=== PATIENT | female | born 1980 | race Caucasian/White ===

== ENCOUNTER 2018-03-03 14:55 | Inpatient (IN) | payer OTHER ==
[2018-03-03 16:31] VITALS: BMI 25.8
--- NOTE | 2018-03-03 19:36 | HP ---
Admission [facility] Chief Complaint: alcohol / crack /cocaine rehab Allergies/Adverse Reactions: Allergies Allergy/AdvReac Type Severity Reaction Status Date / Time ciprofloxacin [From Cipro] Allergy Severe Verified 03/03/18 17:07 morphine Allergy Severe Verified 03/03/18 17:07 History of Present Illness: 37 yo female with hx of crack/ cocaine, nicotine and alcohol dependence is here seeking rehab. Reports hx of past heroin use, clean since 2010. Last detox 2014 at [facility]. PMHX: seizures , IDDM (type 1), neuropathy, HTN, anemia, anxiety, borderline disorder and depression. Denies suicidal / homicide. Last suicide attempt one month admitted to [facility]. Exam Limitations: No Limitations - Ebola screening Have you traveled outside of the country in the last 21 days: No (N) Have you had contact with anyone from an Ebola affected area: No Have you been sick,other than usual withdrawal symptoms: No Do you have a fever: No - Review of Systems Constitutional: Changes in sleep EENT: reports: Other (uses glasess , (R) retina detachment.) Respiratory: reports: No Symptoms reported Cardiac: reports: No Symptoms Reported GI: reports: No Symptoms Reported : reports: Burning (currently treated for yeast infection), Other (white cottage cheese discharge x 2 days) Musculoskeletal: reports: No Symptoms Reported Integumentary: reports: No Symptoms Reported Neuro: reports: See HPI Endocrine: reports: Increased Thirst Hematology: reports: See HPI, Anemia Psychiatric: reports: Orientated x3, Depressed Other Systems: Reviewed and Negative Patient History - Patient Medical History Hx Anemia: Yes (hx of iron transfusion last infusion three months ago ) Hx Asthma: No Hx Chronic Obstructive Pulmonary Disease (COPD): No Hx Cancer: No Hx Cardiac Disorders: No Hx Congestive Heart Failure: No Hx Hypertension: Yes Hx Hypercholesterolemia: No Hx Pacemaker: No HX Cerebrovascular Accident: No Hx Seizures: Yes Hx Dementia: No Hx Diabetes: Yes (Insulin Dependent since age 7 yo ) Hx Gastrointestinal Disorders: No Hx Liver Disease: No Hx Genitourinary Disorders: Yes (frequent yeast infection ) Hx Sexually Transmitted Disorders: No Hx Renal Disease (ESRD): No Hx Thyroid Disease: No Hx Human Immunodeficiency Virus (HIV): No (last tested 6 months ago ) Hx Hepatitis C: Yes (reports no treatment needed at this time ) Hx Depression: Yes Hx Suicide Attempt: Yes (one month ago ) Hx Bipolar Disorder: No Hx Schizophrenia: No - Patient Surgical History Past Surgical History: Yes Hx Neurologic Surgery: No Hx Cataract Extraction: No Hx Cardiac Surgery: No Hx Lung Surgery: No Hx Breast Surgery: No Hx Breast Biopsy: No Hx Abdominal Surgery: No Hx Appendectomy: No Hx Cholecystectomy: No Hx Genitourinary Surgery: No Hx Section: Yes (3x ) Hx Orthopedic Surgery: No Hx Hysterectomy: No Other Surgical History: retinal detachment repair 2018, 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 Admission?: No PPD to be Administered?: Yes - Reproductive History Patient is a Female of Child Bearing Age (11 -55 yrs old): Yes Last Menstrual Period: 02/09/18 Patient : No - Smoking Cessation Smoking history: Current every day smoker Have you smoked in the past 12 months: Yes Aproximately how many cigarettes per day: 8 Hx Chewing Tobacco Use: No Initiated information on smoking cessation: Yes 'Breaking Loose' booklet given: 03/03/18 - Substance & Tx. History Hx Alcohol Use: Yes Hx Substance Use: Yes Substance Use Type: Alcohol, Cocaine Hx Substance Use Treatment: Yes (Last detox 2014 at [facility]) - Substances Abused Alcohol Route: Oral Frequency: 3-6 times per week Amount used: 3 x 24 oz Age of first use: 6 Date of Last Use: 03/01/18 Crack Route: Smoking Frequency: 3-6 times per week Amount used: $20 -100 Age of first use: 14 Date of Last Use: 03/02/18 Family Disease History - Family Disease History Family Disease History: Heart Disease: Father (), Other: Father, Mother ( , mental illness and alcoholism ) Admission Physical Exam S - Vital Signs Vital Signs: Vital Signs - 24 hr 03/03/18 16:28 Temperature 98.9 F Pulse Rate 96 H Respiratory 20 Rate Blood Pressure 107/73 - Physical General Appearance: Yes: Appropriately Dressed, Thin, Anxious HEENTM: Yes: EOMI, Hearing grossly Normal, Normal ENT Inspection, Normocephalic , Normal Voice, DARWIN, Pharynx Normal, Tm's normal, Other (poor dentition) Respiratory: Yes: Chest Non-Tender, Lungs Clear, Normal Breath Sounds, No Respiratory Distress, No Accessory Muscle Use Neck: Yes: No masses,lesions,Nodules, Trachea in good position Breast: Yes: Breast Exam Deferred Cardiology: Yes: Regular Rhythm, Regular Rate Abdominal: Yes: Normal Bowel Sounds, Non Tender, Flat, Soft Genitourinary: Yes: Within Normal Limits Back: Yes: Normal Inspection Musculoskeletal: Yes: full range of Motion, Gait Steady, Pelvis Stable Extremities: Yes: Normal Capillary Refill, Normal Inspection, Normal Range of Motion, Non-Tender Neurological: Yes: environmental solutions engineer II-XII NML intact, Fully Oriented, Alert, Motor Strength 5/5, Normal Response Integumentary: Yes: Within Normal Limits, Normal Color, Dry, Warm Lymphatic: Yes: Within Normal Limits - Diagnostic (1) Vaginal yeast infection Current Visit: Yes Status: Acute (2) Alcohol dependence Current Visit: Yes Status: Acute Qualifiers: Substance use status: uncomplicated Qualified Code(s): F10.20 - Alcohol dependence, uncomplicated (3) Cocaine dependence Current Visit: Yes Status: Acute Qualifiers: Substance use status: uncomplicated Qualified Code(s): F14.20 - Cocaine dependence, uncomplicated (4) Insulin dependent type 1 diabetes mellitus Current Visit: Yes Status: Chronic Comment: On Lantus (15 Units in AM, 20 Units HS), Humalog (on sliding scale TID) (5) Hypertension Current Visit: Yes Status: Chronic Qualifiers: Hypertension type: essential hypertension Qualified Code(s): I10 - Essential (primary) hypertension (6) Neuropathy Current Visit: Yes Status: Chronic Comment: on gabapentin TID (7) Seizure Current Visit: Yes Status: Chronic (8) Depressed mood Current Visit: Yes Status: Acute (9) Anemia Current Visit: Yes Status: Chronic Qualifiers: Anemia type: unspecified type Qualified Code(s): D64.9 - Anemia, unspecified [facility] Breath Alcohol Content Breath Alcohol Content: 0 Urine Pregancy Test - Result Urine Test Results: Negative- NO Line Present Urine Drug Screen - Results Drug Screen Negative: No Urine Drug Screen Results: ZENAIDA-Cocaine Inpatient Rehab Admission - Initial Determination Are CD services needed?: Yes Free of communicable disease: Yes Not in need of hospitalization: Yes - Rehab Admission Criteria Previous failed treatment: Yes Poor recovery environment: Yes Comorbidities: Yes Lacks judgement: Yes Patient is meeting Inpatient Rehab admission criteria:: Yes
[2018-03-03] MEDS ORDERED: MAG HYDROX/AL HYDROX/SIMETH 30 ML UNIT-DOSE CUP PO PRN (19:50)
[2018-03-03] MEDS ORDERED: P-EPHED 60MG/TRIPROLIDI 2.5MG TABLET PO PRN (19:50)
[2018-03-03] MEDS ORDERED: NICOTINE POLACRILEX 2 MG GUM BUC PRN (19:50)
[2018-03-03] MEDS ORDERED: MAGNESIUM CITRATE 300 ML BOTTLE PO PRN (19:50)
[2018-03-03] MEDS ORDERED: MENTHOL/PHENOL 1 EACH UD MM PRN (19:50)
[2018-03-03] MEDS ORDERED: LOPERAMIDE HCL 2 MG CAPSULE PO PRN (19:50)
[2018-03-03] MEDS ORDERED: guaiFENesin/D-METHORPHAN HB 10 ML UNIT-DOSE CUPS PO PRN (19:50)
[2018-03-03] MEDS ORDERED: TUBERCULIN PPD 5 TU/0.1ML VIAL ID ONE ×2 (22:23→23:32)
[2018-03-03] MEDS: THIAMINE HCL 100 MG TABLET (FP) PO SCH (22:43)
[2018-03-03] MEDS: GABAPENTIN 400 MG CAPSULE (FP) PO SCH (22:43)
[2018-03-03] MEDS: levETIRAcetam 500 MG TABLET (FP) PO SCH (22:46)
[2018-03-03] MEDS: INSULIN (LEVEMIR) 100 UNITS/ML UNITS SQ SCH (22:50)
--- NOTE | 2018-03-03 23:07 | PN ---
S Progress Note Note: As per nursing reports patient tranfsered to [facility], has been on; AMBIEN 10MG PO PRN QHS FOR IUNSOMNIA Remeron 15mg po qgs REC: Remeron 15mg po qhs Belsomra 10mg po qhs prn for insomnia
[2018-03-04] MEDS: GABAPENTIN 400 MG CAPSULE (FP) PO SCH ×3 (06:51→21:19)
[2018-03-04] MEDS ORDERED: INSULIN (NOVOLOG) ASPART 100 UNITS/ML 10ML VIAL ONE ×2 (06:57→11:26)
[2018-03-04] MEDS ORDERED: PATIENT'S OWN MEDICATION (NON-FORMULARY) (Insulin Lispro [Humalog] 100 UNIT) SQ SCH (07:00)
[2018-03-04] MEDS: INSULIN (LEVEMIR) 100 UNITS/ML UNITS SQ SCH ×2 (08:05→21:23)
[2018-03-04] MEDS: INSULIN SLIDING SCALE (NOVOLOG) 1 VIAL SQ SCH ×3 (08:11→17:08)
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
[2018-03-04 09:57] LABS: ALBUMIN 3.2 g/dl (3.4-5.0); ANION GAP 8 (8-16); BLOOD UREA NITROGEN 23 mg/dL (7-18); CALCIUM 8.8 mg/dL (8.5-10.1); CHLORIDE 104 mmol/L (98-107); CO2 26 mmol/L (21-32); GLUCOSE,RANDOM 383 mg/dL (74-106); POTASSIUM 4.8 mmol/L (3.5-5.1); SODIUM 138 mmol/L (136-145)
[2018-03-04 09:58] LABS: HEMATOCRIT 37.6 % (32.4-45.2); HEMOGLOBIN 12.7 GM/dL (10.7-15.3); MCH 30.6 pg (25.7-33.7); MCHC 33.9 g/dl (32.0-36.0); MEAN CELL VOLUME 90.2 fl (80-96); PLATELET COUNT 256 K/MM3 (134-434); RBC 4.17 M/mm3 (3.60-5.2); RDW 13.1 % (11.6-15.6); WHITE BLOOD COUNT 6.8 K/mm3 (4.0-10.0)
[2018-03-04 10:01] LABS: ALK PHOS 113 U/L (45-117); BILIRUBIN,TOTAL 0.2 mg/dL (0.2-1.0); CREATININE 1.4 mg/dL (0.55-1.02); SGOT/AST 12 U/L (15-37); SGPT/ALT 16 U/L (12-78); TOT PROT 6.2 g/dl (6.4-8.2)
[2018-03-04] MEDS: levETIRAcetam 500 MG TABLET (FP) PO SCH ×2 (10:31→21:23)
[2018-03-04] MEDS: PRENATAL VITAMINS W/ FOLIC ACID TABLET (FP) PO SCH (10:31)
[2018-03-04] MEDS: NICOTINE 14 MG/24 HOURS TOPICAL PATCH TD SCH (10:31)
[2018-03-04] MEDS: amLODIPine BESYLATE 10 MG TABLET (FP) PO SCH (10:31)
[2018-03-04] MEDS: DULoxetine HCL 20 MG CAPSULE.DR (FP) PO SCH (11:20)
[2018-03-04] MEDS: THIAMINE HCL 100 MG TABLET (FP) PO SCH (21:20)
[2018-03-04] MEDS: MIRTAZAPINE 15 MG TABLET (FP) PO SCH (21:21)
[2018-03-05] MEDS: GABAPENTIN 400 MG CAPSULE (FP) PO SCH ×3 (06:51→21:15)
[2018-03-05] MEDS: INSULIN SLIDING SCALE (NOVOLOG) 1 VIAL SQ SCH ×3 (06:52→16:56)
[2018-03-05] MEDS ORDERED: PT OWN MED DRAWER 7, Y5N ONE (07:00)
--- NOTE | 2018-03-05 08:20 | PN ---
[facility] Progress Note Note: CLIENT SEEN FOR ASYMPTOMATIC BGM OF 40MG/DL PO SUPPLEMENTATION GIVEN REPEAT BGM 208MG/DL Laboratory Results - last 24 hr 03/03/18 03/04/18 03/04/18 22:49 08:40 08:40 WBC 6.8 RBC 4.17 Hgb 12.7 Hct 37.6 MCV 90.2 MCH 30.6 MCHC 33.9 RDW 13.1 Plt Count 256 MPV 8.0 Sodium 138 Potassium 4.8 Chloride 104 Carbon Dioxide 26 Anion Gap 8 BUN 23 H Creatinine 1.4 H Creat Clearance w eGFR 41.86 POC Glucometer 502 Random Glucose 383 H* Calcium 8.8 Total Bilirubin 0.2 AST 12 L ALT 16 Alkaline Phosphatase 113 Total Protein 6.2 L Albumin 3.2 L RPR Titer 03/04/18 03/04/18 03/04/18 08:40 11:23 17:08 WBC RBC Hgb Hct MCV MCH MCHC RDW Plt Count MPV Sodium Potassium Chloride Carbon Dioxide Anion Gap BUN Creatinine Creat Clearance w eGFR POC Glucometer 291 374 Random Glucose Calcium Total Bilirubin AST ALT Alkaline Phosphatase Total Protein Albumin RPR Titer Nonreactive 03/04/18 03/05/18 21:18 05:54 WBC RBC Hgb Hct MCV MCH MCHC RDW Plt Count MPV Sodium Potassium Chloride Carbon Dioxide Anion Gap BUN Creatinine Creat Clearance w eGFR POC Glucometer 93 40 Random Glucose Calcium Total Bilirubin AST ALT Alkaline Phosphatase Total Protein Albumin RPR Titer REPEAT BGM 208MG/DL D/W CLIENT TO HAVE MORNING BREAKFAST MAY GIVE A.M. LEVEMIR AFTER BREAKFAST CONT TO TO MONITOR CLINICALLY
[2018-03-05] MEDS: INSULIN (LEVEMIR) 100 UNITS/ML UNITS SQ SCH ×2 (08:30→21:19)
[2018-03-05] MEDS: NICOTINE 14 MG/24 HOURS TOPICAL PATCH TD SCH (10:22)
[2018-03-05] MEDS: PRENATAL VITAMINS W/ FOLIC ACID TABLET (FP) PO SCH (10:23)
[2018-03-05] MEDS: amLODIPine BESYLATE 10 MG TABLET (FP) PO SCH (10:23)
[2018-03-05] MEDS: DULoxetine HCL 20 MG CAPSULE.DR (FP) PO SCH (10:23)
[2018-03-05] MEDS: levETIRAcetam 500 MG TABLET (FP) PO SCH ×2 (10:23→21:16)
[2018-03-05] MEDS: hydrOXYzine PAMOATE 50 MG CAPSULE (FP) PO PRN (10:25)
[2018-03-05] MEDS ORDERED: INSULIN (NOVOLOG) ASPART 100 UNITS/ML 10ML VIAL ONE ×2 (11:46→16:49)
[2018-03-05] MEDS: ACETAMINOPHEN 325 MG TABLET (FP) PO PRN (16:50)
[2018-03-05] MEDS: THIAMINE HCL 100 MG TABLET (FP) PO SCH (21:15)
[2018-03-05] MEDS: MIRTAZAPINE 15 MG TABLET (FP) PO SCH (21:15)
[2018-03-05] MEDS: MELATONIN 5 MG TABLETS PO PRN (21:17)
[2018-03-05] MEDS: SUVOREXANT 10 MG TABLET PO PRN (21:19)
[2018-03-06] MEDS: GABAPENTIN 400 MG CAPSULE (FP) PO SCH ×3 (06:42→21:35)
[2018-03-06] MEDS: INSULIN SLIDING SCALE (NOVOLOG) 1 VIAL SQ SCH ×3 (06:43→16:58)
[2018-03-06] MEDS: INSULIN (LEVEMIR) 100 UNITS/ML UNITS SQ SCH ×2 (07:52→21:38)
[2018-03-06] MEDS ORDERED: levETIRAcetam 250 MG TABLET (FP) PO ONE ×2 (08:45→20:29)
[2018-03-06] MEDS ORDERED: SUMAtriptan SUCCINATE 50 MG TABLET PO ONE ×2 (10:20→17:45)
[2018-03-06] MEDS ORDERED: ONDANSETRON *ODT* 4 MG TABLET SL PRN (10:21)
--- NOTE | 2018-03-06 10:24 | PN ---
[facility] Progress Note Note: Vital Signs Temperature 97.8 F 03/06/18 06:54 Pulse Rate 65 03/06/18 10:07 Respiratory Rate 18 03/06/18 06:54 Blood Pressure 98/62 03/06/18 10:07 O2 Sat by Pulse Oximetry (%) c/o of nausea and vomiting and bilateral temporal headache which started this morning. Patient reports at home takes imitrex INJ for migraine headaches. Home meds hx reviewed, no rx seen for imitrex. No vision changes reported. Patient AOx3 no distress + headache neg neuro full ROM - migraine headache Plan: One time order imitrex 25 mg zofran PRN fluids as tolerate rest continue to monitor
[2018-03-06] MEDS: PRENATAL VITAMINS W/ FOLIC ACID TABLET (FP) PO SCH (11:00)
[2018-03-06] MEDS: DULoxetine HCL 20 MG CAPSULE.DR (FP) PO SCH (11:00)
[2018-03-06] MEDS: amLODIPine BESYLATE 10 MG TABLET (FP) PO SCH (11:00)
[2018-03-06] MEDS: NICOTINE 14 MG/24 HOURS TOPICAL PATCH TD SCH (11:00)
[2018-03-06] MEDS: levETIRAcetam 500 MG TABLET (FP) PO SCH ×2 (11:00→21:38)
[2018-03-06] MEDS: IBUPROFEN 400 MG TABLET (FP) PO PRN (12:13)
[2018-03-06] MEDS ORDERED: SUMAtriptan SUCCINATE 25 MG TABLET PO ONE ×2 (17:18)
--- NOTE | 2018-03-06 17:26 | PN ---
S Progress Note Note: Vital Signs Temperature 97.8 F 03/06/18 06:54 Pulse Rate 65 03/06/18 10:07 Respiratory Rate 18 03/06/18 06:54 Blood Pressure 98/62 03/06/18 10:07 O2 Sat by Pulse Oximetry (%) continues to c/o of migraine headache unrelieved 25mg imitrex one time dose 50mg imitrex ordered increase fluids continue to monitor
[2018-03-06] MEDS ORDERED: PT OWN MED DRAWER 7, Y5N ONE (19:59)
[2018-03-06] MEDS: MIRTAZAPINE 15 MG TABLET (FP) PO SCH (21:34)
[2018-03-06] MEDS: THIAMINE HCL 100 MG TABLET (FP) PO SCH (21:34)
[2018-03-06] MEDS: hydrOXYzine PAMOATE 50 MG CAPSULE (FP) PO PRN (21:36)
[2018-03-06] MEDS: SUVOREXANT 10 MG TABLET PO PRN (21:37)
[2018-03-07] MEDS: GABAPENTIN 400 MG CAPSULE (FP) PO SCH ×3 (06:28→21:47)
[2018-03-07] MEDS: INSULIN SLIDING SCALE (NOVOLOG) 1 VIAL SQ SCH ×3 (06:29→17:05)
[2018-03-07] MEDS: INSULIN (LEVEMIR) 100 UNITS/ML UNITS SQ SCH ×2 (07:32→21:52)
[2018-03-07] MEDS ORDERED: PT OWN MED DRAWER 7, Y5N ONE (08:33)
[2018-03-07] MEDS: NICOTINE 14 MG/24 HOURS TOPICAL PATCH TD SCH (10:18)
[2018-03-07] MEDS: DULoxetine HCL 20 MG CAPSULE.DR (FP) PO SCH (10:19)
[2018-03-07] MEDS: amLODIPine BESYLATE 10 MG TABLET (FP) PO SCH (10:19)
[2018-03-07] MEDS: PRENATAL VITAMINS W/ FOLIC ACID TABLET (FP) PO SCH (10:19)
--- NOTE | 2018-03-07 11:10 | EKG ---
Test Reason : Blood Pressure : / mmHG Vent. Rate : 091 BPM Atrial Rate : 091 BPM P-R Int : 124 ms QRS Dur : 090 ms QT Int : 374 ms P-R-T Axes : 071 062 061 degrees QTc Int : 460 ms NORMAL SINUS RHYTHM NORMAL ECG WHEN COMPARED WITH ECG OF 03-MAR-2018 20:55, NO SIGNIFICANT CHANGE WAS FOUND Confirmed by DENNIS MUSE MD ([id number]) on 03/07/2018 11:10:03 AM Referred By: Confirmed By:DENNIS MUSE MD
--- NOTE | 2018-03-07 11:11 | EKG ---
Test Reason : Blood Pressure : / mmHG Vent. Rate : 094 BPM Atrial Rate : 094 BPM P-R Int : 116 ms QRS Dur : 086 ms QT Int : 384 ms P-R-T Axes : 068 039 053 degrees QTc Int : 480 ms NORMAL SINUS RHYTHM PROLONGED QT ABNORMAL ECG NO PREVIOUS ECGS AVAILABLE Confirmed by DENNIS MUSE MD ([id number]) on 03/07/2018 11:11:22 AM Referred By: Confirmed By:DENNIS MUSE MD
[2018-03-07] MEDS: IBUPROFEN 400 MG TABLET (FP) PO PRN (15:58)
[2018-03-07] MEDS ORDERED: levETIRAcetam 500 MG TABLET (FP) PO ONE (19:43)
[2018-03-07] MEDS ORDERED: levETIRAcetam 250 MG TABLET (FP) PO ONE (19:44)
[2018-03-07] MEDS: MIRTAZAPINE 15 MG TABLET (FP) PO SCH (21:47)
[2018-03-07] MEDS: MELATONIN 5 MG TABLETS PO PRN (21:48)
[2018-03-07] MEDS: THIAMINE HCL 100 MG TABLET (FP) PO SCH (21:49)
[2018-03-07] MEDS: hydrOXYzine PAMOATE 50 MG CAPSULE (FP) PO PRN (21:50)
[2018-03-07] MEDS ORDERED: SUVOREXANT 10 MG TABLET PO SCH (23:15)
[2018-03-08] MEDS: GABAPENTIN 400 MG CAPSULE (FP) PO SCH ×3 (06:41→21:52)
[2018-03-08] MEDS: INSULIN SLIDING SCALE (NOVOLOG) 1 VIAL SQ SCH ×3 (06:43→17:08)
[2018-03-08] MEDS: INSULIN (LEVEMIR) 100 UNITS/ML UNITS SQ SCH ×2 (08:00→21:54)
[2018-03-08] MEDS ORDERED: levETIRAcetam 500 MG TABLET (FP) PO ONE ×2 (08:46→19:48)
[2018-03-08] MEDS ORDERED: levETIRAcetam 250 MG TABLET (FP) PO ONE ×2 (08:46→19:48)
[2018-03-08] MEDS: DULoxetine HCL 20 MG CAPSULE.DR (FP) PO SCH (09:19)
[2018-03-08] MEDS: NICOTINE 14 MG/24 HOURS TOPICAL PATCH TD SCH (09:20)
[2018-03-08] MEDS: amLODIPine BESYLATE 10 MG TABLET (FP) PO SCH (09:20)
[2018-03-08] MEDS: PRENATAL VITAMINS W/ FOLIC ACID TABLET (FP) PO SCH (09:20)
[2018-03-08] MEDS: IBUPROFEN 400 MG TABLET (FP) PO PRN (09:21)
[2018-03-08] MEDS: ACETAMINOPHEN 325 MG TABLET (FP) PO PRN (11:59)
[2018-03-08 15:46] LABS: URINE APPEARANCE CLEAR; URINE BILIRUBIN NEGATIVE (<2.0 mg/dL); URINE COLOR LTYELLOW; URINE GLUCOSE (UA) 3+ (NEGATIVE); URINE KETONE NEGATIVE (NEGATIVE); URINE LEUK ESTERASE NEGATIVE (NEGATIVE); URINE NITRITE NEGATIVE (NEGATIVE); URINE UROBILINOGEN NEGATIVE mg/dL (0.2-1.0)
[2018-03-08 15:52] LABS: URINE PROTEIN 1+ (NEGATIVE)
[2018-03-08 16:02] LABS: EPI CELLS RARE /HPF (FEW); URINE BACTERIA RARE /hpf (NONE SEEN); URINE MUCUS RARE
[2018-03-08] MEDS: MIRTAZAPINE 15 MG TABLET (FP) PO SCH (21:52)
[2018-03-08] MEDS: THIAMINE HCL 100 MG TABLET (FP) PO SCH (21:52)
[2018-03-08] MEDS ORDERED: SUVOREXANT 10 MG TABLET PO PRN (22:00)
[2018-03-09] MEDS: GABAPENTIN 400 MG CAPSULE (FP) PO SCH ×3 (06:37→21:45)
[2018-03-09] MEDS: INSULIN SLIDING SCALE (NOVOLOG) 1 VIAL SQ SCH ×3 (06:37→16:56)
[2018-03-09] MEDS: INSULIN (LEVEMIR) 100 UNITS/ML UNITS SQ SCH ×2 (07:54→21:46)
[2018-03-09] MEDS ORDERED: levETIRAcetam 500 MG TABLET (FP) PO ONE ×2 (08:27→19:05)
[2018-03-09] MEDS ORDERED: levETIRAcetam 250 MG TABLET (FP) PO ONE ×2 (08:27→19:05)
[2018-03-09] MEDS: IBUPROFEN 400 MG TABLET (FP) PO PRN (09:03)
[2018-03-09] MEDS: amLODIPine BESYLATE 10 MG TABLET (FP) PO SCH (09:07)
[2018-03-09] MEDS: PRENATAL VITAMINS W/ FOLIC ACID TABLET (FP) PO SCH (09:07)
[2018-03-09] MEDS: DULoxetine HCL 20 MG CAPSULE.DR (FP) PO SCH (09:08)
[2018-03-09] MEDS: NICOTINE 14 MG/24 HOURS TOPICAL PATCH TD SCH (09:08)
[2018-03-09] MEDS: ACETAMINOPHEN 325 MG TABLET (FP) PO PRN (12:28)
[2018-03-09] MEDS: hydrOXYzine PAMOATE 50 MG CAPSULE (FP) PO PRN (15:09)
[2018-03-09] MEDS: SUVOREXANT 10 MG TABLET PO SCH (21:45)
[2018-03-09] MEDS: THIAMINE HCL 100 MG TABLET (FP) PO SCH (21:45)
[2018-03-09] MEDS: MIRTAZAPINE 30 MG TABLET (FP) PO SCH (21:47)
[2018-03-10] MEDS: GABAPENTIN 400 MG CAPSULE (FP) PO SCH ×3 (06:43→21:16)
[2018-03-10] MEDS: INSULIN (LEVEMIR) 100 UNITS/ML UNITS SQ SCH ×2 (06:49→21:20)
[2018-03-10] MEDS: INSULIN SLIDING SCALE (NOVOLOG) 1 VIAL SQ SCH ×3 (06:50→16:59)
[2018-03-10] MEDS ORDERED: INSULIN (NOVOLOG) ASPART 100 UNITS/ML 10ML VIAL ONE ×2 (07:03→11:26)
[2018-03-10] MEDS ORDERED: levETIRAcetam 250 MG TABLET (FP) PO ONE ×2 (08:12→19:33)
[2018-03-10] MEDS ORDERED: levETIRAcetam 500 MG TABLET (FP) PO ONE ×2 (08:12→19:32)
[2018-03-10] MEDS: DULoxetine HCL 20 MG CAPSULE.DR (FP) PO SCH (09:37)
[2018-03-10] MEDS: PRENATAL VITAMINS W/ FOLIC ACID TABLET (FP) PO SCH (09:37)
[2018-03-10] MEDS: NICOTINE 14 MG/24 HOURS TOPICAL PATCH TD SCH (09:38)
[2018-03-10] MEDS: amLODIPine BESYLATE 10 MG TABLET (FP) PO SCH (09:38)
--- NOTE | 2018-03-10 18:27 | PN ---
[facility] Progress Note Note: Patient c/o feeling that blood sugar is high. Patient BS repeated by the nurse and was 545 at 1800. Alert and oriented. Vital Signs Period Temp Pulse Resp BP Sys/Mejia Pulse Ox Last 24 Hr 98.1 F 71-80 16-18 104-142/69-88 Given 8 units sliding scale insulin. Repeat BGM prior to evening Levemir was 349 at 2100. Encourage 1 pitcher water every shift and to decrease/stop juices.
[2018-03-10] MEDS ORDERED: INSULIN (NOVOLOG) ASPART 100 UNITS/ML 10ML VIAL SQ ONE (19:15)
[2018-03-10] MEDS: SUVOREXANT 10 MG TABLET PO SCH (21:16)
[2018-03-10] MEDS: THIAMINE HCL 100 MG TABLET (FP) PO SCH (21:16)
[2018-03-10] MEDS: MIRTAZAPINE 30 MG TABLET (FP) PO SCH (21:16)
[2018-03-11] MEDS: GABAPENTIN 400 MG CAPSULE (FP) PO SCH ×3 (06:45→21:28)
[2018-03-11] MEDS: INSULIN SLIDING SCALE (NOVOLOG) 1 VIAL SQ SCH ×3 (06:46→17:00)
[2018-03-11] MEDS: INSULIN (LEVEMIR) 100 UNITS/ML UNITS SQ SCH ×2 (07:51→21:27)
[2018-03-11] MEDS ORDERED: PT OWN MED DRAWER 7, Y5N ONE ×2 (07:53→19:33)
[2018-03-11] MEDS ORDERED: levETIRAcetam 250 MG TABLET (FP) PO ONE ×2 (08:19→19:31)
[2018-03-11] MEDS ORDERED: levETIRAcetam 500 MG TABLET (FP) PO ONE ×2 (08:19→19:31)
[2018-03-11] MEDS: DULoxetine HCL 20 MG CAPSULE.DR (FP) PO SCH (10:03)
[2018-03-11] MEDS: amLODIPine BESYLATE 10 MG TABLET (FP) PO SCH (10:03)
[2018-03-11] MEDS: PRENATAL VITAMINS W/ FOLIC ACID TABLET (FP) PO SCH (10:03)
[2018-03-11] MEDS: IBUPROFEN 400 MG TABLET (FP) PO PRN (10:04)
[2018-03-11] MEDS: NICOTINE 14 MG/24 HOURS TOPICAL PATCH TD SCH (10:04)
[2018-03-11] MEDS ORDERED: INSULIN (NOVOLOG) ASPART 100 UNITS/ML 10ML VIAL ONE (12:25)
--- NOTE | 2018-03-11 13:30 | PN ---
S Progress Note Note: c/o of migraine head ache and white thick vaginal discharge Vital Signs Temperature 98.0 F 03/11/18 06:50 Pulse Rate 64 03/11/18 10:00 Respiratory Rate 18 03/11/18 06:50 Blood Pressure 116/74 03/11/18 10:00 O2 Sat by Pulse Oximetry (%) Laboratory Last Values WBC 6.8 K/mm3 (4.0-10.0) 03/04/18 08:40 RBC 4.17 M/mm3 (3.60-5.2) 03/04/18 08:40 Hgb 12.7 GM/dL (10.7-15.3) 03/04/18 08:40 Hct 37.6 % (32.4-45.2) 03/04/18 08:40 MCV 90.2 fl (80-96) 03/04/18 08:40 MCH 30.6 pg (25.7-33.7) 03/04/18 08:40 MCHC 33.9 g/dl (32.0-36.0) 03/04/18 08:40 RDW 13.1 % (11.6-15.6) 03/04/18 08:40 Plt Count 256 K/MM3 (134-434) 03/04/18 08:40 MPV 8.0 fl (7.5-11.1) 03/04/18 08:40 Sodium 138 mmol/L (136-145) 03/04/18 08:40 Potassium 4.8 mmol/L (3.5-5.1) 03/04/18 08:40 Chloride 104 mmol/L (98-107) 03/04/18 08:40 Carbon Dioxide 26 mmol/L (21-32) 03/04/18 08:40 Anion Gap 8 (8-16) 03/04/18 08:40 BUN 23 mg/dL (7-18) H 03/04/18 08:40 Creatinine 1.4 mg/dL (0.55-1.02) H 03/04/18 08:40 Creat Clearance w eGFR 41.86 (>60) 03/04/18 08:40 POC Glucometer 239 UNITS (80-120) 03/11/18 16:58 Random Glucose 383 mg/dL (74-106) H* 03/04/18 08:40 Calcium 8.8 mg/dL (8.5-10.1) 03/04/18 08:40 Total Bilirubin 0.2 mg/dL (0.2-1.0) 03/04/18 08:40 AST 12 U/L (15-37) L 03/04/18 08:40 ALT 16 U/L (12-78) 03/04/18 08:40 Alkaline Phosphatase 113 U/L (45-117) 03/04/18 08:40 Total Protein 6.2 g/dl (6.4-8.2) L 03/04/18 08:40 Albumin 3.2 g/dl (3.4-5.0) L 03/04/18 08:40 Urine Color Ltyellow 03/08/18 09:50 Urine Appearance Clear 03/08/18 09:50 Urine pH 6.0 (5.0-8.0) 03/08/18 09:50 Ur Specific [place] 1.015 (1.001-1.035) 03/08/18 09:50 Urine Protein 1+ (NEGATIVE) H 03/08/18 09:50 Urine Glucose (UA) 3+ (NEGATIVE) H 03/08/18 09:50 Urine Ketones Negative (NEGATIVE) 03/08/18 09:50 Urine Blood Negative (NEGATIVE) 03/08/18 09:50 Urine Nitrite Negative (NEGATIVE) 03/08/18 09:50 Urine Bilirubin Negative (<2.0 mg/dL) 03/08/18 09:50 Urine Urobilinogen Negative mg/dL (0.2-1.0) 03/08/18 09:50 Ur Leukocyte Esterase Negative (NEGATIVE) 03/08/18 09:50 Urine WBC (Auto) 1 /hpf (3-5) 03/08/18 09:50 Urine RBC (Auto) <1 /hpf (0-3) 03/08/18 09:50 Ur Epithelial Cells Rare /HPF (FEW) 03/08/18 09:50 Urine Bacteria Rare /hpf (NONE SEEN) 03/08/18 09:50 Urine Mucus Rare 03/08/18 09:50 RPR Titer Nonreactive (NONREACTIVE) 03/04/18 08:40 Patient refuse scheduled keppra levels one dose imitrex 50 mg one dose diflucan + clotrimetazole x 3 days increase fluids continue to monitor
[2018-03-11] MEDS ORDERED: SUMAtriptan SUCCINATE 50 MG TABLET PO ONE (14:00)
[2018-03-11] MEDS ORDERED: FLUCONAZOLE 50 MG TABLET PO ONE (14:00)
[2018-03-11] MEDS: SUVOREXANT 10 MG TABLET PO SCH (21:29)
[2018-03-11] MEDS: THIAMINE HCL 100 MG TABLET (FP) PO SCH (21:29)
[2018-03-11] MEDS: MIRTAZAPINE 30 MG TABLET (FP) PO SCH (21:29)
[2018-03-11] MEDS: CLOTRIMAZOLE 1% VAGINAL CREAM WITH APPLICATOR 45 GM TUBE VG SCH (21:30)
[2018-03-12] MEDS: GABAPENTIN 400 MG CAPSULE (FP) PO SCH ×3 (06:28→21:55)
[2018-03-12] MEDS: INSULIN SLIDING SCALE (NOVOLOG) 1 VIAL SQ SCH ×3 (06:29→16:15)
[2018-03-12] MEDS: INSULIN (LEVEMIR) 100 UNITS/ML UNITS SQ SCH ×2 (07:53→21:59)
[2018-03-12] MEDS ORDERED: INSULIN (LEVEMIR) 100 UNITS/ML UNITS SQ ONE (08:10)
[2018-03-12] MEDS ORDERED: levETIRAcetam 500 MG TABLET (FP) PO ONE ×2 (08:46→19:20)
[2018-03-12] MEDS ORDERED: levETIRAcetam 250 MG TABLET (FP) PO ONE ×2 (08:46→19:20)
[2018-03-12] MEDS: DULoxetine HCL 20 MG CAPSULE.DR (FP) PO SCH (09:49)
[2018-03-12] MEDS: NICOTINE 14 MG/24 HOURS TOPICAL PATCH TD SCH (09:50)
[2018-03-12] MEDS: PRENATAL VITAMINS W/ FOLIC ACID TABLET (FP) PO SCH (09:50)
[2018-03-12] MEDS: amLODIPine BESYLATE 10 MG TABLET (FP) PO SCH (09:50)
[2018-03-12] MEDS: MIRTAZAPINE 30 MG TABLET (FP) PO SCH (21:55)
[2018-03-12] MEDS: THIAMINE HCL 100 MG TABLET (FP) PO SCH (21:55)
[2018-03-12] MEDS: SUVOREXANT 10 MG TABLET PO SCH (21:55)
[2018-03-12] MEDS: CLOTRIMAZOLE 1% VAGINAL CREAM WITH APPLICATOR 45 GM TUBE VG SCH (21:56)
[2018-03-13] MEDS: GABAPENTIN 400 MG CAPSULE (FP) PO SCH ×3 (06:59→21:28)
[2018-03-13] MEDS: INSULIN SLIDING SCALE (NOVOLOG) 1 VIAL SQ SCH ×3 (07:30→17:10)
[2018-03-13] MEDS: INSULIN (LEVEMIR) 100 UNITS/ML UNITS SQ SCH ×2 (07:57→21:28)
[2018-03-13] MEDS ORDERED: INSULIN (LEVEMIR) 100 UNITS/ML UNITS SQ ONE (08:03)
[2018-03-13] MEDS ORDERED: levETIRAcetam 500 MG TABLET (FP) PO ONE ×2 (08:50→19:28)
[2018-03-13] MEDS ORDERED: levETIRAcetam 250 MG TABLET (FP) PO ONE ×2 (08:50→19:28)
[2018-03-13] MEDS: NICOTINE 14 MG/24 HOURS TOPICAL PATCH TD SCH (10:11)
[2018-03-13] MEDS: DULoxetine HCL 20 MG CAPSULE.DR (FP) PO SCH (10:11)
[2018-03-13] MEDS: amLODIPine BESYLATE 10 MG TABLET (FP) PO SCH (10:11)
[2018-03-13] MEDS: PRENATAL VITAMINS W/ FOLIC ACID TABLET (FP) PO SCH (10:11)
[2018-03-13] MEDS ORDERED: INSULIN (NOVOLOG) ASPART 100 UNITS/ML 10ML VIAL ONE (16:58)
[2018-03-13] MEDS: MIRTAZAPINE 30 MG TABLET (FP) PO SCH (21:24)
[2018-03-13] MEDS: SUVOREXANT 10 MG TABLET PO SCH (21:24)
[2018-03-13] MEDS: THIAMINE HCL 100 MG TABLET (FP) PO SCH (21:24)
[2018-03-13] MEDS: CLOTRIMAZOLE 1% VAGINAL CREAM WITH APPLICATOR 45 GM TUBE VG SCH (21:26)
[2018-03-13] MEDS ORDERED: PT OWN MED DRAWER 7, Y5N ONE (21:27)
[2018-03-14] MEDS: INSULIN (LEVEMIR) 100 UNITS/ML UNITS SQ SCH ×2 (06:50→21:25)
[2018-03-14] MEDS: INSULIN SLIDING SCALE (NOVOLOG) 1 VIAL SQ SCH ×3 (06:51→16:48)
[2018-03-14] MEDS: GABAPENTIN 400 MG CAPSULE (FP) PO SCH ×3 (07:27→21:22)
[2018-03-14] MEDS ORDERED: levETIRAcetam 250 MG TABLET (FP) PO ONE ×2 (08:34→19:57)
[2018-03-14] MEDS ORDERED: levETIRAcetam 500 MG TABLET (FP) PO ONE ×2 (08:34→19:57)
[2018-03-14] MEDS: amLODIPine BESYLATE 10 MG TABLET (FP) PO SCH (10:08)
[2018-03-14] MEDS: PRENATAL VITAMINS W/ FOLIC ACID TABLET (FP) PO SCH (10:09)
[2018-03-14] MEDS: NICOTINE 14 MG/24 HOURS TOPICAL PATCH TD SCH (10:09)
[2018-03-14] MEDS: DULoxetine HCL 20 MG CAPSULE.DR (FP) PO SCH (10:09)
[2018-03-14] MEDS ORDERED: INSULIN (NOVOLOG) ASPART 100 UNITS/ML 10ML VIAL ONE (11:24)
[2018-03-14] MEDS ORDERED: AMITRIPTYLINE HCL 25 MG TABLET (FP) PO ONE (17:15)
[2018-03-14] MEDS: THIAMINE HCL 100 MG TABLET (FP) PO SCH (21:22)
[2018-03-14] MEDS: MIRTAZAPINE 30 MG TABLET (FP) PO SCH (21:22)
[2018-03-14] MEDS: SUVOREXANT 10 MG TABLET PO SCH (21:22)
[2018-03-14] MEDS: AMITRIPTYLINE HCL 25 MG TABLET (FP) PO SCH (21:26)
[2018-03-15] MEDS: AMITRIPTYLINE HCL 25 MG TABLET (FP) PO SCH ×3 (06:37→21:18)
[2018-03-15] MEDS: GABAPENTIN 400 MG CAPSULE (FP) PO SCH ×3 (06:37→21:17)
[2018-03-15] MEDS: INSULIN SLIDING SCALE (NOVOLOG) 1 VIAL SQ SCH ×3 (06:38→17:22)
[2018-03-15] MEDS: INSULIN (LEVEMIR) 100 UNITS/ML UNITS SQ SCH ×2 (07:46→21:22)
[2018-03-15] MEDS ORDERED: levETIRAcetam 500 MG TABLET (FP) PO ONE ×2 (08:40→20:27)
[2018-03-15] MEDS ORDERED: PT OWN MED DRAWER 7, Y5N ONE ×2 (08:41→22:55)
[2018-03-15] MEDS ORDERED: levETIRAcetam 250 MG TABLET (FP) PO ONE ×2 (08:41→20:28)
[2018-03-15] MEDS: DULoxetine HCL 20 MG CAPSULE.DR (FP) PO SCH (09:45)
[2018-03-15] MEDS: PRENATAL VITAMINS W/ FOLIC ACID TABLET (FP) PO SCH (09:45)
[2018-03-15] MEDS: NICOTINE 14 MG/24 HOURS TOPICAL PATCH TD SCH (09:46)
[2018-03-15] MEDS: amLODIPine BESYLATE 10 MG TABLET (FP) PO SCH (09:46)
[2018-03-15] MEDS ORDERED: INSULIN (NOVOLOG) ASPART 100 UNITS/ML 10ML VIAL ONE (11:33)
--- NOTE | 2018-03-15 16:29 | PN ---
[facility] Progress Note Note: Vital Signs Temperature 98.0 F 03/15/18 06:49 Pulse Rate 76 03/15/18 09:17 Respiratory Rate 18 03/15/18 09:17 Blood Pressure 91/59 03/15/18 09:17 O2 Sat by Pulse Oximetry (%) Laboratory Last Values WBC 6.8 K/mm3 (4.0-10.0) 03/04/18 08:40 RBC 4.17 M/mm3 (3.60-5.2) 03/04/18 08:40 Hgb 12.7 GM/dL (10.7-15.3) 03/04/18 08:40 Hct 37.6 % (32.4-45.2) 03/04/18 08:40 MCV 90.2 fl (80-96) 03/04/18 08:40 MCH 30.6 pg (25.7-33.7) 03/04/18 08:40 MCHC 33.9 g/dl (32.0-36.0) 03/04/18 08:40 RDW 13.1 % (11.6-15.6) 03/04/18 08:40 Plt Count 256 K/MM3 (134-434) 03/04/18 08:40 MPV 8.0 fl (7.5-11.1) 03/04/18 08:40 Sodium 138 mmol/L (136-145) 03/04/18 08:40 Potassium 4.8 mmol/L (3.5-5.1) 03/04/18 08:40 Chloride 104 mmol/L (98-107) 03/04/18 08:40 Carbon Dioxide 26 mmol/L (21-32) 03/04/18 08:40 Anion Gap 8 (8-16) 03/04/18 08:40 BUN 23 mg/dL (7-18) H 03/04/18 08:40 Creatinine 1.4 mg/dL (0.55-1.02) H 03/04/18 08:40 Creat Clearance w eGFR 41.86 (>60) 03/04/18 08:40 POC Glucometer 149 UNITS (80-120) 03/15/18 15:00 Random Glucose 383 mg/dL (74-106) H* 03/04/18 08:40 Calcium 8.8 mg/dL (8.5-10.1) 03/04/18 08:40 Total Bilirubin 0.2 mg/dL (0.2-1.0) 03/04/18 08:40 AST 12 U/L (15-37) L 03/04/18 08:40 ALT 16 U/L (12-78) 03/04/18 08:40 Alkaline Phosphatase 113 U/L (45-117) 03/04/18 08:40 Total Protein 6.2 g/dl (6.4-8.2) L 03/04/18 08:40 Albumin 3.2 g/dl (3.4-5.0) L 03/04/18 08:40 Urine Color Ltyellow 03/08/18 09:50 Urine Appearance Clear 03/08/18 09:50 Urine pH 6.0 (5.0-8.0) 03/08/18 09:50 Ur Specific [place] 1.015 (1.001-1.035) 03/08/18 09:50 Urine Protein 1+ (NEGATIVE) H 03/08/18 09:50 Urine Glucose (UA) 3+ (NEGATIVE) H 03/08/18 09:50 Urine Ketones Negative (NEGATIVE) 03/08/18 09:50 Urine Blood Negative (NEGATIVE) 03/08/18 09:50 Urine Nitrite Negative (NEGATIVE) 03/08/18 09:50 Urine Bilirubin Negative (<2.0 mg/dL) 03/08/18 09:50 Urine Urobilinogen Negative mg/dL (0.2-1.0) 03/08/18 09:50 Ur Leukocyte Esterase Negative (NEGATIVE) 03/08/18 09:50 Urine WBC (Auto) 1 /hpf (3-5) 03/08/18 09:50 Urine RBC (Auto) <1 /hpf (0-3) 03/08/18 09:50 Ur Epithelial Cells Rare /HPF (FEW) 03/08/18 09:50 Urine Bacteria Rare /hpf (NONE SEEN) 03/08/18 09:50 Urine Mucus Rare 03/08/18 09:50 RPR Titer Nonreactive (NONREACTIVE) 03/04/18 08:40 Patient Ox3 ambulating. Patient c/o of feeling weak while at the nurses station around 13:55, BGM taken = 37 mg/dL. BGM recheck 47mg/dL. Four cups of juice given. Patient was given two more cups of juice with sugar added and a peanut butter and jelly sandwich. Blood glucose increased to 149mg/dL at 1500. Patient reported feeling better. Patient was evaluated by the bed side no changes in LOC Aox3, full ROM, no adventitious breath sounds. Reports no CP, vertigo or SOB. BGM recheck 149mg/dL. Patient encourage to eat scheduled meals, reports any symptoms to staff. Increase fluids . Continue to monitor.
--- NOTE | 2018-03-15 19:42 | PN ---
[facility] Progress Note Note: sliding scale dc for recurrent low blood sugars. c/w levemir regimen and monitor clinically
[2018-03-15] MEDS: SUVOREXANT 10 MG TABLET PO SCH (21:17)
[2018-03-15] MEDS: MIRTAZAPINE 30 MG TABLET (FP) PO SCH (21:18)
[2018-03-15] MEDS: THIAMINE HCL 100 MG TABLET (FP) PO SCH (21:18)
[2018-03-16] MEDS: GABAPENTIN 400 MG CAPSULE (FP) PO SCH ×3 (06:22→21:27)
[2018-03-16] MEDS: AMITRIPTYLINE HCL 25 MG TABLET (FP) PO SCH ×3 (06:22→21:27)
[2018-03-16] MEDS: INSULIN (LEVEMIR) 100 UNITS/ML UNITS SQ SCH ×2 (07:55→21:28)
[2018-03-16] MEDS ORDERED: levETIRAcetam 500 MG TABLET (FP) PO ONE ×2 (08:25→19:30)
[2018-03-16] MEDS ORDERED: levETIRAcetam 250 MG TABLET (FP) PO ONE ×2 (08:26→19:30)
[2018-03-16] MEDS: DULoxetine HCL 20 MG CAPSULE.DR (FP) PO SCH (09:30)
[2018-03-16] MEDS ORDERED: PT OWN MED DRAWER 7, Y5N ONE (09:31)
[2018-03-16] MEDS: NICOTINE 14 MG/24 HOURS TOPICAL PATCH TD SCH (09:32)
[2018-03-16] MEDS: amLODIPine BESYLATE 10 MG TABLET (FP) PO SCH (09:32)
[2018-03-16] MEDS: PRENATAL VITAMINS W/ FOLIC ACID TABLET (FP) PO SCH (09:32)
[2018-03-16] MEDS: THIAMINE HCL 100 MG TABLET (FP) PO SCH (21:26)
[2018-03-16] MEDS: MIRTAZAPINE 30 MG TABLET (FP) PO SCH (21:27)
[2018-03-17] MEDS: GABAPENTIN 400 MG CAPSULE (FP) PO SCH ×3 (06:26→21:26)
[2018-03-17] MEDS: AMITRIPTYLINE HCL 25 MG TABLET (FP) PO SCH ×3 (06:26→21:27)
[2018-03-17] MEDS: INSULIN (LEVEMIR) 100 UNITS/ML UNITS SQ SCH ×2 (08:04→21:28)
[2018-03-17] MEDS ORDERED: levETIRAcetam 250 MG TABLET (FP) PO ONE ×2 (08:38→19:26)
[2018-03-17] MEDS ORDERED: levETIRAcetam 500 MG TABLET (FP) PO ONE ×2 (08:38→19:25)
[2018-03-17] MEDS: DULoxetine HCL 20 MG CAPSULE.DR (FP) PO SCH (09:25)
[2018-03-17] MEDS: NICOTINE 14 MG/24 HOURS TOPICAL PATCH TD SCH (09:26)
[2018-03-17] MEDS: amLODIPine BESYLATE 10 MG TABLET (FP) PO SCH (09:27)
[2018-03-17] MEDS: PRENATAL VITAMINS W/ FOLIC ACID TABLET (FP) PO SCH (09:27)
[2018-03-17] MEDS: hydrOXYzine PAMOATE 50 MG CAPSULE (FP) PO PRN (15:24)
[2018-03-17] MEDS: THIAMINE HCL 100 MG TABLET (FP) PO SCH (21:27)
[2018-03-17] MEDS: MIRTAZAPINE 30 MG TABLET (FP) PO SCH (21:27)
[2018-03-18] MEDS: AMITRIPTYLINE HCL 25 MG TABLET (FP) PO SCH ×3 (06:28→21:17)
[2018-03-18] MEDS: GABAPENTIN 400 MG CAPSULE (FP) PO SCH ×3 (06:28→21:17)
[2018-03-18] MEDS: INSULIN (LEVEMIR) 100 UNITS/ML UNITS SQ SCH ×2 (07:51→21:20)
[2018-03-18] MEDS ORDERED: levETIRAcetam 500 MG TABLET (FP) PO ONE ×2 (08:23→20:10)
[2018-03-18] MEDS ORDERED: levETIRAcetam 250 MG TABLET (FP) PO ONE ×2 (08:24→20:10)
[2018-03-18] MEDS: PRENATAL VITAMINS W/ FOLIC ACID TABLET (FP) PO SCH (09:33)
[2018-03-18] MEDS: amLODIPine BESYLATE 10 MG TABLET (FP) PO SCH (09:34)
[2018-03-18] MEDS: DULoxetine HCL 20 MG CAPSULE.DR (FP) PO SCH (09:34)
[2018-03-18] MEDS: NICOTINE 14 MG/24 HOURS TOPICAL PATCH TD SCH (09:35)
[2018-03-18] MEDS: hydrOXYzine PAMOATE 50 MG CAPSULE (FP) PO PRN (14:42)
[2018-03-18] MEDS: MIRTAZAPINE 30 MG TABLET (FP) PO SCH (21:17)
[2018-03-18] MEDS: THIAMINE HCL 100 MG TABLET (FP) PO SCH (21:17)
[2018-03-18] MEDS: MELATONIN 5 MG TABLETS PO PRN (21:18)
[2018-03-19] MEDS: AMITRIPTYLINE HCL 25 MG TABLET (FP) PO SCH ×3 (06:50→21:12)
[2018-03-19] MEDS: GABAPENTIN 400 MG CAPSULE (FP) PO SCH ×3 (06:50→21:12)
[2018-03-19] MEDS: INSULIN (LEVEMIR) 100 UNITS/ML UNITS SQ SCH ×2 (07:51→21:13)
[2018-03-19] MEDS ORDERED: levETIRAcetam 250 MG TABLET (FP) PO ONE ×2 (08:50→19:22)
[2018-03-19] MEDS ORDERED: levETIRAcetam 500 MG TABLET (FP) PO ONE ×2 (08:50→19:22)
[2018-03-19] MEDS: DULoxetine HCL 20 MG CAPSULE.DR (FP) PO SCH (09:31)
[2018-03-19] MEDS: PRENATAL VITAMINS W/ FOLIC ACID TABLET (FP) PO SCH (09:31)
[2018-03-19] MEDS: NICOTINE 14 MG/24 HOURS TOPICAL PATCH TD SCH (09:32)
[2018-03-19] MEDS: amLODIPine BESYLATE 10 MG TABLET (FP) PO SCH (10:13)
[2018-03-19] MEDS: THIAMINE HCL 100 MG TABLET (FP) PO SCH (21:12)
[2018-03-19] MEDS: MIRTAZAPINE 30 MG TABLET (FP) PO SCH (21:12)
[2018-03-19] MEDS: MELATONIN 5 MG TABLETS PO PRN (21:13)
[2018-03-20] MEDS: AMITRIPTYLINE HCL 25 MG TABLET (FP) PO SCH ×3 (06:35→21:12)
[2018-03-20] MEDS: GABAPENTIN 400 MG CAPSULE (FP) PO SCH ×3 (06:35→21:12)
[2018-03-20] MEDS: INSULIN (LEVEMIR) 100 UNITS/ML UNITS SQ SCH ×2 (08:15→21:44)
[2018-03-20] MEDS ORDERED: levETIRAcetam 250 MG TABLET (FP) PO ONE ×2 (08:46→19:22)
[2018-03-20] MEDS ORDERED: levETIRAcetam 500 MG TABLET (FP) PO ONE ×2 (08:46→19:22)
[2018-03-20] MEDS: DULoxetine HCL 20 MG CAPSULE.DR (FP) PO SCH (09:30)
[2018-03-20] MEDS: NICOTINE 14 MG/24 HOURS TOPICAL PATCH TD SCH (09:31)
[2018-03-20] MEDS: PRENATAL VITAMINS W/ FOLIC ACID TABLET (FP) PO SCH (09:31)
[2018-03-20] MEDS: amLODIPine BESYLATE 10 MG TABLET (FP) PO SCH (09:31)
--- NOTE | 2018-03-20 18:20 | PN ---
[facility] Progress Note Note: Pt's FS is 403mg/dl, insulin coverage ordered.
[2018-03-20] MEDS: INSULIN SLIDING SCALE (NOVOLOG) 1 VIAL SQ SCH ×2 (18:27→21:45)
[2018-03-20] MEDS: THIAMINE HCL 100 MG TABLET (FP) PO SCH (21:12)
[2018-03-20] MEDS: MIRTAZAPINE 30 MG TABLET (FP) PO SCH (21:12)
[2018-03-20] MEDS: MELATONIN 5 MG TABLETS PO PRN (21:15)
[2018-03-20] MEDS ORDERED: INSULIN SLIDING SCALE (NOVOLOG) 1 VIAL SQ SCH (22:00)
[2018-03-21] MEDS: GABAPENTIN 400 MG CAPSULE (FP) PO SCH ×3 (06:36→21:19)
[2018-03-21] MEDS: AMITRIPTYLINE HCL 25 MG TABLET (FP) PO SCH ×3 (06:36→21:20)
[2018-03-21] MEDS: INSULIN (LEVEMIR) 100 UNITS/ML UNITS SQ SCH ×3 (06:37→21:18)
[2018-03-21] MEDS ORDERED: PT OWN MED DRAWER 7, Y5N ONE (09:43)
[2018-03-21] MEDS: DULoxetine HCL 20 MG CAPSULE.DR (FP) PO SCH (10:18)
[2018-03-21] MEDS: PRENATAL VITAMINS W/ FOLIC ACID TABLET (FP) PO SCH (10:18)
[2018-03-21] MEDS: amLODIPine BESYLATE 10 MG TABLET (FP) PO SCH (10:19)
[2018-03-21] MEDS: NICOTINE 14 MG/24 HOURS TOPICAL PATCH TD SCH (10:25)
--- NOTE | 2018-03-21 13:55 | PN ---
[facility] Progress Note Note: KEPPRA LEVEL 42.7 ON 03/16/18. WILL REPEAT LEVEL IN AM. PATIENT MEDICALLY STABLE AND NO SEIZURES REPORTED. Vital Signs Temperature 97.9 F 03/21/18 07:18 Pulse Rate 90 03/21/18 09:54 Respiratory Rate 18 03/21/18 07:18 Blood Pressure 97/65 03/21/18 09:54 O2 Sat by Pulse Oximetry (%)
[2018-03-21] MEDS ORDERED: levETIRAcetam 250 MG TABLET (FP) PO ONE (20:31)
[2018-03-21] MEDS ORDERED: levETIRAcetam 500 MG TABLET (FP) PO ONE (20:31)
[2018-03-21] MEDS: MIRTAZAPINE 30 MG TABLET (FP) PO SCH (21:19)
[2018-03-21] MEDS: MELATONIN 5 MG TABLETS PO PRN (21:20)
[2018-03-21] MEDS: THIAMINE HCL 100 MG TABLET (FP) PO SCH (21:20)
[2018-03-22] MEDS: GABAPENTIN 400 MG CAPSULE (FP) PO SCH ×3 (06:36→22:19)
[2018-03-22] MEDS: AMITRIPTYLINE HCL 25 MG TABLET (FP) PO SCH ×3 (06:36→22:19)
[2018-03-22] MEDS: INSULIN (LEVEMIR) 100 UNITS/ML UNITS SQ SCH ×2 (08:02→22:21)
[2018-03-22] MEDS ORDERED: levETIRAcetam 250 MG TABLET (FP) PO ONE ×2 (09:03→20:34)
[2018-03-22] MEDS ORDERED: levETIRAcetam 500 MG TABLET (FP) PO ONE ×2 (09:03→20:33)
[2018-03-22] MEDS: NICOTINE 14 MG/24 HOURS TOPICAL PATCH TD SCH (09:52)
[2018-03-22] MEDS: DULoxetine HCL 20 MG CAPSULE.DR (FP) PO SCH (09:53)
[2018-03-22] MEDS: PRENATAL VITAMINS W/ FOLIC ACID TABLET (FP) PO SCH (09:53)
[2018-03-22] MEDS: amLODIPine BESYLATE 10 MG TABLET (FP) PO SCH (09:53)
[2018-03-22] MEDS: THIAMINE HCL 100 MG TABLET (FP) PO SCH (22:18)
[2018-03-22] MEDS: MIRTAZAPINE 30 MG TABLET (FP) PO SCH (22:19)
[2018-03-22] MEDS: MELATONIN 5 MG TABLETS PO PRN (22:22)
[2018-03-22] MEDS ORDERED: PT OWN MED DRAWER 7, Y5N ONE (23:08)
[2018-03-23] MEDS: AMITRIPTYLINE HCL 25 MG TABLET (FP) PO SCH ×3 (06:41→21:32)
[2018-03-23] MEDS: GABAPENTIN 400 MG CAPSULE (FP) PO SCH ×3 (06:42→21:32)
[2018-03-23] MEDS ORDERED: levETIRAcetam 500 MG TABLET (FP) PO ONE ×2 (08:09→20:22)
[2018-03-23] MEDS ORDERED: levETIRAcetam 250 MG TABLET (FP) PO ONE ×2 (08:09→20:22)
[2018-03-23] MEDS: INSULIN (LEVEMIR) 100 UNITS/ML UNITS SQ SCH ×2 (08:25→21:37)
[2018-03-23] MEDS: DULoxetine HCL 20 MG CAPSULE.DR (FP) PO SCH (09:44)
[2018-03-23] MEDS: amLODIPine BESYLATE 10 MG TABLET (FP) PO SCH (09:45)
[2018-03-23] MEDS: NICOTINE 14 MG/24 HOURS TOPICAL PATCH TD SCH (09:45)
[2018-03-23] MEDS: PRENATAL VITAMINS W/ FOLIC ACID TABLET (FP) PO SCH (09:45)
[2018-03-23] MEDS: MELATONIN 5 MG TABLETS PO PRN (21:31)
[2018-03-23] MEDS: MIRTAZAPINE 30 MG TABLET (FP) PO SCH (21:32)
[2018-03-23] MEDS: THIAMINE HCL 100 MG TABLET (FP) PO SCH (21:32)
[2018-03-24] MEDS: GABAPENTIN 400 MG CAPSULE (FP) PO SCH ×3 (06:35→22:17)
[2018-03-24] MEDS: AMITRIPTYLINE HCL 25 MG TABLET (FP) PO SCH ×3 (06:35→22:17)
[2018-03-24] MEDS: INSULIN (LEVEMIR) 100 UNITS/ML UNITS SQ SCH ×2 (07:45→22:18)
[2018-03-24] MEDS ORDERED: levETIRAcetam 500 MG TABLET (FP) PO ONE ×2 (08:17→19:19)
[2018-03-24] MEDS ORDERED: levETIRAcetam 250 MG TABLET (FP) PO ONE ×2 (08:18→19:20)
[2018-03-24] MEDS: DULoxetine HCL 20 MG CAPSULE.DR (FP) PO SCH (09:40)
[2018-03-24] MEDS: PRENATAL VITAMINS W/ FOLIC ACID TABLET (FP) PO SCH (09:40)
[2018-03-24] MEDS: NICOTINE 14 MG/24 HOURS TOPICAL PATCH TD SCH (09:40)
[2018-03-24] MEDS: amLODIPine BESYLATE 10 MG TABLET (FP) PO SCH (09:41)
[2018-03-24] MEDS: IBUPROFEN 400 MG TABLET (FP) PO PRN (11:44)
[2018-03-24] MEDS ORDERED: PT OWN MED DRAWER 7, Y5N ONE (21:42)
[2018-03-24] MEDS: MIRTAZAPINE 30 MG TABLET (FP) PO SCH (22:17)
[2018-03-24] MEDS: THIAMINE HCL 100 MG TABLET (FP) PO SCH (22:32)
[2018-03-25] MEDS ORDERED: INSULIN (NOVOLOG) ASPART 100 UNITS/ML 10ML VIAL SQ ONE ×3 (00:15→21:58)
[2018-03-25] MEDS: hydrOXYzine PAMOATE 50 MG CAPSULE (FP) PO PRN (03:25)
[2018-03-25] MEDS: AMITRIPTYLINE HCL 25 MG TABLET (FP) PO SCH ×3 (06:34→21:35)
[2018-03-25] MEDS: GABAPENTIN 400 MG CAPSULE (FP) PO SCH ×3 (06:34→21:35)
[2018-03-25] MEDS: INSULIN (LEVEMIR) 100 UNITS/ML UNITS SQ SCH ×3 (07:55→21:52)
[2018-03-25] MEDS ORDERED: levETIRAcetam 250 MG TABLET (FP) PO ONE ×2 (08:29→20:32)
[2018-03-25] MEDS ORDERED: levETIRAcetam 500 MG TABLET (FP) PO ONE ×2 (08:29→20:32)
--- NOTE | 2018-03-25 09:21 | PN ---
Psychiatric Progress Note Vital Signs: Vital Signs Period Temp Pulse Resp BP Sys/Mejia Pulse Ox Last 24 Hr 98.2 F 88-91 16-18 93-96/61-66 Date of Session: 03/25/18 Chief Complaint:: I am having sleeping difficulties,inability to fallasleep, interrupted sleep HPI: Patient addressed Alcohol,Cocaine dependence comorbid with PTSD,Bipolar disorder. Current Medications: Active Medications Generic Name Dose Route Start Last Admin Trade Name Freq PRN Reason Stop Dose Admin Acetaminophen 650 mg 03/03/18 19:50 03/09/18 12:28 Tylenol - PO 650 mg Q4H PRN Administration FEVER Al Hydroxide/Mg Hydroxide 30 ml 03/03/18 19:50 Mylanta Oral Suspension - PO Q6H PRN DYSPEPSIA Amitriptyline HCl 25 mg 03/14/18 22:00 03/25/18 06:34 Elavil - PO 25 mg TID JOSE G Administration Amlodipine Besylate 10 mg 03/04/18 10:00 03/24/18 09:41 Norvasc - PO Not Given DAILY [facility] Duloxetine HCl 40 mg 03/10/18 10:00 03/24/18 09:40 Cymbalta - PO 40 mg DAILY [facility] Administration Eucalyptus/Menthol/Phenol/Sorbitol 1 each 03/03/18 19:50 Cepastat Lozenge - MM Q4H PRN SORE THROAT Gabapentin 800 mg 03/03/18 22:00 03/25/18 06:34 Neurontin - PO 800 mg TID [facility] Administration Guaifenesin 10 ml 03/03/18 19:50 Robitussin Dm - PO Q6H PRN COUGH Hydroxyzine Pamoate 50 mg 03/03/18 19:50 03/25/18 03:25 Vistaril - PO 50 mg Q4H PRN Administration AGITATION Ibuprofen 400 mg 03/03/18 19:50 03/24/18 11:44 Motrin - PO 400 mg Q6H PRN Administration Pain level 4-6 Insulin Detemir 20 units 03/03/18 22:00 03/24/18 22:18 Levemir Vial SQ 20 units HS JOSE G Administration Insulin Detemir 15 units 03/25/18 08:30 03/25/18 08:46 Levemir Vial SQ Not Given DAILY@0830 [facility] Levetiracetam 1,000 mg/ 1,250 mg 03/07/18 10:00 03/24/18 22:17 Levetiracetam 250 mg PO 1,250 mg BID JOSE G Administration Loperamide HCl 4 mg 03/03/18 19:50 03/14/18 10:07 Imodium - PO 4 mg Q6H PRN Administration DIARRHEA Magnesium Citrate 300 ml 03/03/18 19:50 Citroma - PO Q48H PRN CONSTIPATION Magnesium Hydroxide 30 ml 03/03/18 19:50 Milk Of Magnesia - PO DAILY PRN CONSTIPATION Melatonin 5 mg 03/03/18 22:00 03/23/18 21:31 Melatonin PO 5 mg HS PRN Administration INSOMNIA Mirtazapine 30 mg 03/09/18 22:00 03/24/18 22:17 Remeron - PO 30 mg HS JOSE G Administration Nicotine 14 mg 03/04/18 10:00 03/24/18 09:40 Nicoderm Patch - TD Not Given DAILY JOSE G Nicotine Polacrilex 2 mg 03/03/18 19:50 Nicorette Gum - BUC Q2H PRN NICOTINE REPLACEMENT RX Multivit/Folic Acid/Iron 1 tab 03/04/18 10:00 03/24/18 09:40 Vitamins (Sjr) - PO 1 tab DAILY JOSE G Administration Pseudoephedrine/Triprolidine 1 combo 03/03/18 19:50 Actifed - PO TID PRN NASAL CONGESTION Suvorexant 10 mg 03/25/18 22:00 Belsomra PO HS JOSE G Thiamine HCl 100 mg 03/03/18 22:00 03/24/18 22:32 Vitamin B1 - PO 100 mg HS JOSE G Administration Current Side Effect: No Lab tests ordered: No Lab tests reviewed: Yes Provider note:: Chart was revuewed,patient was seen in my offiice to address ongoing sleeping difficulties.Properties of Belsomra has been discussed with the patient including benefits,side effects and dose adjustment.Belsomra 10 mg po hs prn will be started tonight.Will continue current medications as per plan. Sleep improving techniques has been discussed as well. Total face to face time:: 25 Mental Status Exam - Mental Status Exam Alert and Oriented to: Time, Place, Person Cognitive Function: Grossly Intact Patient Appearance: Well Groomed Mood: Anxious Affect: Mood Congruent, Labile Patient Behavior: Appropriate, Cooperative Speech Pattern: Clear Voice Loudness: Normal Thought Process: Goal Oriented Thought Disorder: Not Present Hallucinations: Denies Suicidal Ideation: Denies Homicidal Ideation: Denies Insight/Judgement: Fair Sleep: Difficulty falling asleep Appetite: Good Muscle strength/Tone: Normal Gait/Station: Normal Psychiatric Treatment Plan - Problem List (1) Alcohol dependence Current Visit: Yes Qualifiers: Substance use status: uncomplicated Qualified Code(s): F10.20 - Alcohol dependence, uncomplicated (2) Cocaine dependence Current Visit: Yes Qualifiers: Substance use status: uncomplicated Qualified Code(s): F14.20 - Cocaine dependence, uncomplicated (3) Anemia Current Visit: Yes Qualifiers: Anemia type: unspecified type Qualified Code(s): D64.9 - Anemia, unspecified (4) Hypertension Current Visit: Yes Qualifiers: Hypertension type: essential hypertension Qualified Code(s): I10 - Essential (primary) hypertension (5) Insulin dependent type 1 diabetes mellitus Current Visit: Yes Comment: On Lantus (15 Units in AM, 20 Units HS), Humalog (on sliding scale TID) (6) Neuropathy Current Visit: Yes Comment: on gabapentin TID (7) PTSD (post-traumatic stress disorder) Current Visit: Yes (8) Borderline personality disorder Current Visit: Yes (9) Seizure Current Visit: Yes (10) Substance induced mood disorder Current Visit: Yes
[2018-03-25] MEDS: DULoxetine HCL 20 MG CAPSULE.DR (FP) PO SCH (10:03)
[2018-03-25] MEDS: NICOTINE 14 MG/24 HOURS TOPICAL PATCH TD SCH (10:04)
[2018-03-25] MEDS: PRENATAL VITAMINS W/ FOLIC ACID TABLET (FP) PO SCH (10:04)
[2018-03-25] MEDS: amLODIPine BESYLATE 10 MG TABLET (FP) PO SCH (10:04)
[2018-03-25] MEDS ORDERED: INSULIN (NOVOLOG) ASPART 100 UNITS/ML 10ML VIAL ONE ×2 (12:33→21:59)
[2018-03-25] MEDS: MELATONIN 5 MG TABLETS PO PRN (21:35)
[2018-03-25] MEDS: THIAMINE HCL 100 MG TABLET (FP) PO SCH (21:35)
[2018-03-25] MEDS: SUVOREXANT 10 MG TABLET PO SCH (21:35)
[2018-03-25] MEDS: MIRTAZAPINE 30 MG TABLET (FP) PO SCH (21:35)
--- NOTE | 2018-03-25 21:58 | PN ---
S Progress Note Note: Received call from nurse to state patients finger stick is [phone]. Patient did not receive Levemir this am because POC glucose was 93. Patient did just received this evenings dose. Patient states she feels very thirsty and unconformable r/t elevated bld glucose. Give 2 units Novalog. Consider re-evaluation of HS Levemir dose, if blood glucose is low, in am. Encourage increased water intake. CMP Sodium 138 mmol/L (136-145) 03/04/18 08:40 Potassium 4.8 mmol/L (3.5-5.1) 03/04/18 08:40 Chloride 104 mmol/L (98-107) 03/04/18 08:40 Carbon Dioxide 26 mmol/L (21-32) 03/04/18 08:40 Anion Gap 8 (8-16) 03/04/18 08:40 BUN 23 mg/dL (7-18) H 03/04/18 08:40 Creatinine 1.4 mg/dL (0.55-1.02) H 03/04/18 08:40 Creat Clearance w eGFR 41.86 (>60) 03/04/18 08:40 POC Glucometer 501 UNITS (80-120) 03/25/18 21:40 Random Glucose 383 mg/dL (74-106) H* 03/04/18 08:40 Calcium 8.8 mg/dL (8.5-10.1) 03/04/18 08:40 Total Bilirubin 0.2 mg/dL (0.2-1.0) 03/04/18 08:40 AST 12 U/L (15-37) L 03/04/18 08:40 ALT 16 U/L (12-78) 03/04/18 08:40 Alkaline Phosphatase 113 U/L (45-117) 03/04/18 08:40 Total Protein 6.2 g/dl (6.4-8.2) L 03/04/18 08:40 Albumin 3.2 g/dl (3.4-5.0) L 03/04/18 08:40 Vital Signs - 24 hr 03/25/18 03/25/18 03/25/18 00:30 06:49 09:00 Temperature 98.2 F Pulse Rate 88 99 H Respiratory 18 16 18 Rate Blood Pressure 93/61 94/64
[2018-03-25] MEDS ORDERED: PT OWN MED DRAWER 7, Y5N ONE (22:01)
[2018-03-26] MEDS: AMITRIPTYLINE HCL 25 MG TABLET (FP) PO SCH ×3 (06:46→21:11)
[2018-03-26] MEDS: GABAPENTIN 400 MG CAPSULE (FP) PO SCH ×3 (06:46→21:10)
[2018-03-26] MEDS: INSULIN (LEVEMIR) 100 UNITS/ML UNITS SQ SCH ×2 (08:21→21:12)
[2018-03-26] MEDS ORDERED: levETIRAcetam 500 MG TABLET (FP) PO ONE ×2 (09:11→19:38)
[2018-03-26] MEDS ORDERED: levETIRAcetam 250 MG TABLET (FP) PO ONE ×2 (09:12→19:38)
[2018-03-26] MEDS: NICOTINE 14 MG/24 HOURS TOPICAL PATCH TD SCH (09:56)
[2018-03-26] MEDS: amLODIPine BESYLATE 10 MG TABLET (FP) PO SCH (09:56)
[2018-03-26] MEDS: DULoxetine HCL 20 MG CAPSULE.DR (FP) PO SCH (09:56)
[2018-03-26] MEDS: PRENATAL VITAMINS W/ FOLIC ACID TABLET (FP) PO SCH (09:56)
[2018-03-26] MEDS ORDERED: INSULIN (NOVOLOG) ASPART 100 UNITS/ML 10ML VIAL SQ ONE (11:45)
[2018-03-26] MEDS: MIRTAZAPINE 30 MG TABLET (FP) PO SCH (21:11)
[2018-03-26] MEDS: THIAMINE HCL 100 MG TABLET (FP) PO SCH (21:11)
[2018-03-26] MEDS: SUVOREXANT 10 MG TABLET PO SCH (21:12)
[2018-03-27] MEDS: AMITRIPTYLINE HCL 25 MG TABLET (FP) PO SCH ×3 (06:09→22:17)
[2018-03-27] MEDS: GABAPENTIN 400 MG CAPSULE (FP) PO SCH ×3 (06:09→22:16)
[2018-03-27] MEDS ORDERED: levETIRAcetam 250 MG TABLET (FP) PO ONE ×2 (08:27→19:36)
[2018-03-27] MEDS ORDERED: levETIRAcetam 500 MG TABLET (FP) PO ONE ×2 (08:27→19:35)
[2018-03-27] MEDS ORDERED: INSULIN (LEVEMIR) 100 UNITS/ML UNITS SQ ONE (08:57)
[2018-03-27] MEDS: INSULIN (LEVEMIR) 100 UNITS/ML UNITS SQ SCH ×2 (08:57→22:20)
[2018-03-27] MEDS: DULoxetine HCL 20 MG CAPSULE.DR (FP) PO SCH (09:51)
[2018-03-27] MEDS: PRENATAL VITAMINS W/ FOLIC ACID TABLET (FP) PO SCH (09:51)
[2018-03-27] MEDS: amLODIPine BESYLATE 10 MG TABLET (FP) PO SCH (09:52)
[2018-03-27] MEDS: NICOTINE 14 MG/24 HOURS TOPICAL PATCH TD SCH (09:52)
[2018-03-27] MEDS ORDERED: INSULIN (NOVOLOG) ASPART 100 UNITS/ML 10ML VIAL SQ SCH (16:30)
[2018-03-27] MEDS ORDERED: INSULIN (NOVOLOG) ASPART 100 UNITS/ML 10ML VIAL SQ ONE (17:45)
[2018-03-27] MEDS ORDERED: INSULIN (NOVOLOG) ASPART 100 UNITS/ML 10ML VIAL ONE (17:57)
[2018-03-27] MEDS: MIRTAZAPINE 30 MG TABLET (FP) PO SCH (22:16)
[2018-03-27] MEDS: THIAMINE HCL 100 MG TABLET (FP) PO SCH (22:17)
[2018-03-27] MEDS: SUVOREXANT 10 MG TABLET PO SCH (22:18)
[2018-03-27] MEDS: MELATONIN 5 MG TABLETS PO PRN (22:18)
[2018-03-27] MEDS: INSULIN SLIDING SCALE (NOVOLOG) 1 VIAL SQ SCH (22:21)
[2018-03-28] MEDS: GABAPENTIN 400 MG CAPSULE (FP) PO SCH ×3 (06:36→21:24)
[2018-03-28] MEDS: AMITRIPTYLINE HCL 25 MG TABLET (FP) PO SCH ×3 (06:36→21:24)
[2018-03-28] MEDS: INSULIN (LEVEMIR) 100 UNITS/ML UNITS SQ SCH ×2 (07:56→21:27)
[2018-03-28] MEDS: INSULIN SLIDING SCALE (NOVOLOG) 1 VIAL SQ SCH (08:37)
--- NOTE | 2018-03-28 08:37 | PN ---
S Progress Note Note: bgm is 393,did not want to be on sliding scale,would like to be on fix unit, agreed to be on 4 units before each meal,will monitor closely bgm ac and hs
[2018-03-28] MEDS ORDERED: levETIRAcetam 500 MG TABLET (FP) PO ONE ×2 (09:04→19:45)
[2018-03-28] MEDS ORDERED: levETIRAcetam 250 MG TABLET (FP) PO ONE ×2 (09:04→19:45)
[2018-03-28] MEDS: DULoxetine HCL 20 MG CAPSULE.DR (FP) PO SCH (10:05)
[2018-03-28] MEDS: PRENATAL VITAMINS W/ FOLIC ACID TABLET (FP) PO SCH (10:06)
[2018-03-28] MEDS: amLODIPine BESYLATE 10 MG TABLET (FP) PO SCH (10:06)
[2018-03-28] MEDS: MAGNESIUM HYDROX 2400MG/30ML ORAL SUSPENSION 30 ML CUP PO PRN (10:07)
[2018-03-28] MEDS: NICOTINE 14 MG/24 HOURS TOPICAL PATCH TD SCH (10:08)
[2018-03-28] MEDS: INSULIN (NOVOLOG) ASPART 100 UNITS/ML 10ML VIAL SQ SCH ×2 (11:22→16:52)
[2018-03-28] MEDS ORDERED: INSULIN (NOVOLOG) ASPART 100 UNITS/ML 10ML VIAL ONE ×2 (11:26→16:54)
[2018-03-28] MEDS ORDERED: MECLIZINE HCL 25 MG TABLET (FP) PO PRN (13:58)
--- NOTE | 2018-03-28 14:20 | PN ---
[facility] Progress Note Note: Vital Signs Temperature 99.1 F 03/28/18 07:02 Pulse Rate 106 H 03/28/18 13:52 Respiratory Rate 18 03/28/18 07:02 Blood Pressure 95/61 03/28/18 13:52 O2 Sat by Pulse Oximetry (%) Laboratory Last Values WBC 6.8 K/mm3 (4.0-10.0) 03/04/18 08:40 RBC 4.17 M/mm3 (3.60-5.2) 03/04/18 08:40 Hgb 12.7 GM/dL (10.7-15.3) 03/04/18 08:40 Hct 37.6 % (32.4-45.2) 03/04/18 08:40 MCV 90.2 fl (80-96) 03/04/18 08:40 MCH 30.6 pg (25.7-33.7) 03/04/18 08:40 MCHC 33.9 g/dl (32.0-36.0) 03/04/18 08:40 RDW 13.1 % (11.6-15.6) 03/04/18 08:40 Plt Count 256 K/MM3 (134-434) 03/04/18 08:40 MPV 8.0 fl (7.5-11.1) 03/04/18 08:40 Sodium 138 mmol/L (136-145) 03/04/18 08:40 Potassium 4.8 mmol/L (3.5-5.1) 03/04/18 08:40 Chloride 104 mmol/L (98-107) 03/04/18 08:40 Carbon Dioxide 26 mmol/L (21-32) 03/04/18 08:40 Anion Gap 8 (8-16) 03/04/18 08:40 BUN 23 mg/dL (7-18) H 03/04/18 08:40 Creatinine 1.4 mg/dL (0.55-1.02) H 03/04/18 08:40 Creat Clearance w eGFR 41.86 (>60) 03/04/18 08:40 POC Glucometer 293 UNITS (80-120) 03/28/18 13:45 Random Glucose 383 mg/dL (74-106) H* 03/04/18 08:40 Calcium 8.8 mg/dL (8.5-10.1) 03/04/18 08:40 Total Bilirubin 0.2 mg/dL (0.2-1.0) 03/04/18 08:40 AST 12 U/L (15-37) L 03/04/18 08:40 ALT 16 U/L (12-78) 03/04/18 08:40 Alkaline Phosphatase 113 U/L (45-117) 03/04/18 08:40 Total Protein 6.2 g/dl (6.4-8.2) L 03/04/18 08:40 Albumin 3.2 g/dl (3.4-5.0) L 03/04/18 08:40 Urine Color Ltyellow 03/08/18 09:50 Urine Appearance Clear 03/08/18 09:50 Urine pH 6.0 (5.0-8.0) 03/08/18 09:50 Ur Specific [place] 1.015 (1.001-1.035) 03/08/18 09:50 Urine Protein 1+ (NEGATIVE) H 03/08/18 09:50 Urine Glucose (UA) 3+ (NEGATIVE) H 03/08/18 09:50 Urine Ketones Negative (NEGATIVE) 03/08/18 09:50 Urine Blood Negative (NEGATIVE) 03/08/18 09:50 Urine Nitrite Negative (NEGATIVE) 03/08/18 09:50 Urine Bilirubin Negative (<2.0 mg/dL) 03/08/18 09:50 Urine Urobilinogen Negative mg/dL (0.2-1.0) 03/08/18 09:50 Ur Leukocyte Esterase Negative (NEGATIVE) 03/08/18 09:50 Urine WBC (Auto) 1 /hpf (3-5) 03/08/18 09:50 Urine RBC (Auto) <1 /hpf (0-3) 03/08/18 09:50 Ur Epithelial Cells Rare /HPF (FEW) 03/08/18 09:50 Urine Bacteria Rare /hpf (NONE SEEN) 03/08/18 09:50 Urine Mucus Rare 03/08/18 09:50 Levetiracetam 21.0 MCG/ML (10.0-40.0) 03/22/18 08:30 RPR Titer Nonreactive (NONREACTIVE) 03/04/18 08:40 patient c/o of dizziness and low BP. AM BP med held. Patient AOx3, no distress no adventitious breath sounds full rom, requested to sit d/t vertigo - vertigo - Hypotension Plan: antivert 25mg PRN amlodipine dose reduce to from 10 mg to 5 mg qd d/c low sodium diet temp increase fluids elevate lower extremities continue to monitor
[2018-03-28] MEDS: SUVOREXANT 10 MG TABLET PO SCH (21:23)
[2018-03-28] MEDS: MIRTAZAPINE 30 MG TABLET (FP) PO SCH (21:24)
[2018-03-28] MEDS: THIAMINE HCL 100 MG TABLET (FP) PO SCH (21:24)
[2018-03-28] MEDS: MELATONIN 5 MG TABLETS PO PRN (21:24)
[2018-03-28] MEDS ORDERED: PT OWN MED DRAWER 7, Y5N ONE (21:57)
[2018-03-29] MEDS: AMITRIPTYLINE HCL 25 MG TABLET (FP) PO SCH ×3 (06:17→21:36)
[2018-03-29] MEDS: GABAPENTIN 400 MG CAPSULE (FP) PO SCH ×3 (06:17→21:36)
[2018-03-29] MEDS: INSULIN (NOVOLOG) ASPART 100 UNITS/ML 10ML VIAL SQ SCH ×4 (06:20→17:50)
[2018-03-29] MEDS ORDERED: levETIRAcetam 250 MG TABLET (FP) PO ONE ×2 (08:45→19:52)
[2018-03-29] MEDS ORDERED: levETIRAcetam 500 MG TABLET (FP) PO ONE ×2 (08:45→19:52)
[2018-03-29] MEDS: INSULIN (LEVEMIR) 100 UNITS/ML UNITS SQ SCH ×2 (08:47→21:40)
[2018-03-29] MEDS: PRENATAL VITAMINS W/ FOLIC ACID TABLET (FP) PO SCH (10:10)
[2018-03-29] MEDS: DULoxetine HCL 20 MG CAPSULE.DR (FP) PO SCH (10:10)
[2018-03-29] MEDS: NICOTINE 14 MG/24 HOURS TOPICAL PATCH TD SCH (10:10)
[2018-03-29] MEDS: amLODIPine BESYLATE 5 MG TABLET (FP) PO SCH (10:11)
[2018-03-29] MEDS: SUVOREXANT 10 MG TABLET PO SCH (21:35)
[2018-03-29] MEDS: MELATONIN 5 MG TABLETS PO PRN (21:36)
[2018-03-29] MEDS: THIAMINE HCL 100 MG TABLET (FP) PO SCH (21:36)
[2018-03-29] MEDS: MIRTAZAPINE 30 MG TABLET (FP) PO SCH (21:36)
[2018-03-30] MEDS: INSULIN (NOVOLOG) ASPART 100 UNITS/ML 10ML VIAL SQ SCH ×3 (06:30→17:30)
[2018-03-30] MEDS: GABAPENTIN 400 MG CAPSULE (FP) PO SCH ×3 (06:32→22:07)
[2018-03-30] MEDS: AMITRIPTYLINE HCL 25 MG TABLET (FP) PO SCH ×3 (06:32→22:07)
[2018-03-30] MEDS: INSULIN (LEVEMIR) 100 UNITS/ML UNITS SQ SCH ×2 (07:37→22:09)
[2018-03-30] MEDS ORDERED: levETIRAcetam 500 MG TABLET (FP) PO ONE ×2 (09:33→19:41)
[2018-03-30] MEDS ORDERED: levETIRAcetam 250 MG TABLET (FP) PO ONE ×2 (09:34→19:41)
[2018-03-30] MEDS: PRENATAL VITAMINS W/ FOLIC ACID TABLET (FP) PO SCH (09:58)
[2018-03-30] MEDS: amLODIPine BESYLATE 5 MG TABLET (FP) PO SCH (09:59)
[2018-03-30] MEDS: DULoxetine HCL 20 MG CAPSULE.DR (FP) PO SCH (09:59)
[2018-03-30] MEDS: IBUPROFEN 400 MG TABLET (FP) PO PRN (10:00)
[2018-03-30] MEDS: NICOTINE 14 MG/24 HOURS TOPICAL PATCH TD SCH (10:01)
--- NOTE | 2018-03-30 14:40 | PN ---
[facility] Progress Note Note: Patient schedule to complete program 03/30/18. Patient stable. Patient to follow up with primary medical provider within a week.
--- NOTE | 2018-03-30 16:22 | PN ---
Psychiatric Progress Note Vital Signs: Vital Signs Period Temp Pulse Resp BP Sys/Mejia Pulse Ox Last 24 Hr 98.5 F-98.7 F 96-106 18-18 100-136/63-92 Date of Session: 03/30/18 Chief Complaint:: Discharge visit. HPI: Patient addressed alcohol,cocaine dependence comorbid with Substance induced mood disorder,PTSD,Bordeline personality disorder. ROS: Anemia,HTN,DM. Current Medications: Active Medications Generic Name Dose Route Start Last Admin Trade Name Freq PRN Reason Stop Dose Admin Acetaminophen 650 mg 03/03/18 19:50 03/09/18 12:28 Tylenol - PO 650 mg Q4H PRN Administration FEVER Al Hydroxide/Mg Hydroxide 30 ml 03/03/18 19:50 03/25/18 11:07 Mylanta Oral Suspension - PO 30 ml Q6H PRN Administration DYSPEPSIA Amitriptyline HCl 25 mg 03/14/18 22:00 03/30/18 13:57 Elavil - PO 25 mg TID JOSE G Administration Amlodipine Besylate 5 mg 03/29/18 10:00 03/30/18 09:59 Norvasc - PO Not Given DAILY JOSE G Duloxetine HCl 40 mg 03/10/18 10:00 03/30/18 09:59 Cymbalta - PO 40 mg DAILY JOSE G Administration Eucalyptus/Menthol/Phenol/Sorbitol 1 each 03/03/18 19:50 Cepastat Lozenge - MM Q4H PRN SORE THROAT Gabapentin 800 mg 03/03/18 22:00 03/30/18 13:57 Neurontin - PO 800 mg TID JOSE G Administration Guaifenesin 10 ml 03/03/18 19:50 Robitussin Dm - PO Q6H PRN COUGH Hydroxyzine Pamoate 50 mg 03/03/18 19:50 03/25/18 03:25 Vistaril - PO 50 mg Q4H PRN Administration AGITATION Ibuprofen 400 mg 03/03/18 19:50 03/30/18 10:00 Motrin - PO 400 mg Q6H PRN Administration Pain level 4-6 Insulin Aspart 4 units 03/28/18 11:00 03/30/18 11:56 Novolog Vial SQ 4 units TIDAC JOSE G Administration Protocol Insulin Detemir 20 units 03/03/18 22:00 03/29/18 21:40 Levemir Vial SQ Not Given HS JOSE G Insulin Detemir 15 units 03/25/18 08:30 03/30/18 07:37 Levemir Vial SQ 15 units DAILY@0830 JOSE G Administration Levetiracetam 1,000 mg/ 1,250 mg 03/07/18 10:00 03/30/18 09:58 Levetiracetam 250 mg PO 1,250 mg BID JOSE G Administration Loperamide HCl 4 mg 03/03/18 19:50 03/14/18 10:07 Imodium - PO 4 mg Q6H PRN Administration DIARRHEA Magnesium Citrate 300 ml 03/03/18 19:50 03/28/18 17:20 Citroma - PO 300 ml Q48H PRN Administration CONSTIPATION Magnesium Hydroxide 30 ml 03/03/18 19:50 03/28/18 10:07 Milk Of Magnesia - PO 30 ml DAILY PRN Administration CONSTIPATION Meclizine HCl 25 mg 03/28/18 13:58 03/28/18 14:06 Antivert - PO 25 mg Q6H PRN Administration VERTIGO Melatonin 5 mg 03/03/18 22:00 03/29/18 21:36 Melatonin PO 5 mg HS PRN Administration INSOMNIA Mirtazapine 30 mg 03/09/18 22:00 03/29/18 21:36 Remeron - PO 30 mg HS JOSE G Administration Nicotine 14 mg 03/04/18 10:00 03/30/18 10:01 Nicoderm Patch - TD Not Given DAILY JOSE G Nicotine Polacrilex 2 mg 03/03/18 19:50 Nicorette Gum - BUC Q2H PRN NICOTINE REPLACEMENT RX Multivit/Folic Acid/Iron 1 tab 03/04/18 10:00 03/30/18 09:58 Vitamins (Sjr) - PO 1 tab DAILY JOSE G Administration Pseudoephedrine/Triprolidine 1 combo 03/03/18 19:50 Actifed - PO TID PRN NASAL CONGESTION Suvorexant 10 mg 03/25/18 22:00 03/29/18 21:35 Belsomra PO 04/01/18 21:59 10 mg HS JOSE G Administration Thiamine HCl 100 mg 03/03/18 22:00 03/29/18 21:36 Vitamin B1 - PO 100 mg HS JOSE G Administration Current Side Effect: No Lab tests ordered: No Lab tests reviewed: Yes Provider note:: Patient will complete this program tomorrow.She has met her treatment goals and will continue to address her issues on outpatient basis at [facility].Patient reports finding that current medications :Neurontin 800 mg po tid,Cymbalta 40 mg po daily,Remeron 30 mg o hs help to cope with anxiety,mood instability,depression.Scripts for 30 days provided. supportive therapy provided focusing on relapse prevention. Patient is stable for discharge tomorrow. Total face to face time:: 30 Mental Status Exam - Mental Status Exam Alert and Oriented to: Time, Place, Person Cognitive Function: Grossly Intact Patient Appearance: Well Groomed Mood: Hopeful, Euthymic Affect: Appropriate, Mood Congruent Patient Behavior: Cooperative Speech Pattern: Clear Voice Loudness: Normal Thought Process: Goal Oriented Thought Disorder: Not Present Hallucinations: Denies Suicidal Ideation: Denies Homicidal Ideation: Denies Insight/Judgement: Fair Sleep: Fair Appetite: Good Muscle strength/Tone: Normal Gait/Station: Normal Psychiatric Treatment Plan - Problem List (1) Alcohol dependence Current Visit: Yes Qualifiers: Substance use status: uncomplicated Qualified Code(s): F10.20 - Alcohol dependence, uncomplicated (2) Cocaine dependence Current Visit: Yes Qualifiers: Substance use status: uncomplicated Qualified Code(s): F14.20 - Cocaine dependence, uncomplicated (3) Anemia Current Visit: Yes Qualifiers: Anemia type: unspecified type Qualified Code(s): D64.9 - Anemia, unspecified (4) Hypertension Current Visit: Yes Qualifiers: Hypertension type: essential hypertension Qualified Code(s): I10 - Essential (primary) hypertension (5) Insulin dependent type 1 diabetes mellitus Current Visit: Yes Comment: On Lantus (15 Units in AM, 20 Units HS), Humalog (on sliding scale TID) (6) Neuropathy Current Visit: Yes Comment: on gabapentin TID (7) PTSD (post-traumatic stress disorder) Current Visit: Yes (8) Borderline personality disorder Current Visit: Yes (9) Seizure Current Visit: Yes (10) Substance induced mood disorder Current Visit: Yes
[2018-03-30] MEDS: MAGNESIUM HYDROX 2400MG/30ML ORAL SUSPENSION 30 ML CUP PO PRN (18:41)
[2018-03-30] MEDS: MIRTAZAPINE 30 MG TABLET (FP) PO SCH (22:07)
[2018-03-30] MEDS: THIAMINE HCL 100 MG TABLET (FP) PO SCH (22:07)
[2018-03-30] MEDS: SUVOREXANT 10 MG TABLET PO SCH (22:08)
[2018-03-30] MEDS: MELATONIN 5 MG TABLETS PO PRN (22:09)
[2018-03-30] MEDS ORDERED: PT OWN MED DRAWER 7, Y5N ONE (22:13)
[2018-03-31] MEDS: AMITRIPTYLINE HCL 25 MG TABLET (FP) PO SCH (06:07)
[2018-03-31] MEDS: GABAPENTIN 400 MG CAPSULE (FP) PO SCH (06:07)
[2018-03-31] MEDS: INSULIN (NOVOLOG) ASPART 100 UNITS/ML 10ML VIAL SQ SCH (06:08)
[2018-03-31 06:37] VITALS: TEMP 98.8
[2018-03-31] MEDS: INSULIN (LEVEMIR) 100 UNITS/ML UNITS SQ SCH (08:36)
[2018-03-31] MEDS ORDERED: levETIRAcetam 500 MG TABLET (FP) PO ONE (08:41)
[2018-03-31] MEDS ORDERED: levETIRAcetam 250 MG TABLET (FP) PO ONE (08:41)
[2018-03-31] MEDS: PRENATAL VITAMINS W/ FOLIC ACID TABLET (FP) PO SCH (09:05)
[2018-03-31] MEDS: DULoxetine HCL 20 MG CAPSULE.DR (FP) PO SCH (09:05)
[2018-03-31] MEDS: amLODIPine BESYLATE 5 MG TABLET (FP) PO SCH (09:05)
[2018-03-31] MEDS: NICOTINE 14 MG/24 HOURS TOPICAL PATCH TD SCH (09:06)
[2018-03-31 09:17] VITALS: BP 112/72; PULSE 109
== END 2018-03-31 09:36 | disposition home or self-care (01) | DRG 895 ==
LOC: YASAS 14:55 → Y3E 17:38
PROVIDERS: ADMIT Psychiatry & Neurology Psychiatry; ATTEND Psychiatry & Neurology Psychiatry
PROC: HZ42ZZZ Group Counseling for Substance Abuse Treatment, Cognitive-Behavioral (ICD-10-PCS; principal; 2018-03-03)
DX: F10.20 Alcohol dependence, uncomplicated (principal); F14.20 Cocaine dependence, uncomplicated; F32.9 Major depressive disorder, single episode, unspecified; F43.10 Post-traumatic stress disorder, unspecified; F60.3 Borderline personality disorder; F19.24 Other psychoactive substance dependence with psychoactive substance-induced mood disorder; I10 Essential (primary) hypertension; D64.9 Anemia, unspecified; E10.9 Type 1 diabetes mellitus without complications; G62.9 Polyneuropathy, unspecified; G40.909 Epilepsy, unspecified, not intractable, without status epilepticus; G43.109 Migraine with aura, not intractable, without status migrainosus; R42 Dizziness and giddiness; I95.9 Hypotension, unspecified; N89.8 Other specified noninflammatory disorders of vagina; B37.3 Candidiasis of vulva and vagina; Z79.4 Long term (current) use of insulin; Z88.1 Allergy status to other antibiotic agents; Z91.5 Personal history of self-harm
CPT/HCPCS: 36415; 80053; 81003; 81015; 82962; 85027; 86593; 93005; 93010